=== PATIENT | female | born 1945 | race Caucasian/White ===

== ENCOUNTER → 2019-03-23 | Outpatient (CLI) | payer MEDICARE ==
[~2019-03-23] MED LIST: ASPI81TA94 PO; HYDR-653 PO; NO CURRENT MEDS; ONDA4TAB PO
--- NOTE | 2019-03-23 15:29 | RADIOLOGY IMAGING REPORT ---
FACILITY: [facility] [place] PATIENT NAME: XAVI BUCKNER : [id number] MR: [id number] V: [id number] EXAM DATE: [id number] ORDERING PHYSICIAN: AMBROSIO JIMENEZ TECHNOLOGIST: Navya Hutchinson PROCEDURE: BILATERAL DIGITAL SCREENING MAMMOGRAM WITH CAD ASSISTED INTERPRETATION & 3D TOMOSYNTHESIS. REASON FOR STUDY: Screening. FAMILY HISTORY OF BREAST CANCER: Mother in her 60's. BREAST PROCEDURES/TREATMENTS: None. COMPARISON: 09/20/16. VIEWS OBTAINED: Bilateral 2D & 3D full field CC & MLO projections. BREAST DENSITY: There are scattered areas of fibroglandular density throughout the breasts. MAMMOGRAM FINDINGS: The parenchymal pattern has remained stable allowing for difference in mammographic technique & patient positioning. An implanted battery projects over the upper portion of the Left breast posterior depth on the MLO view. IMPRESSION: BIRADS 1: Negative. DIAGNOSTIC CATEGORY 1--NEGATIVE. RECOMMENDATIONS: ROUTINE MAMMOGRAM AND CLINICAL EVALUATION. Dictated by: Dee Ray M.D. on 03/23/2019 at 14:22 Transcribed by: RAJESH on 03/23/2019 at 14:56 Approved by: Dee Ray M.D. on 03/23/2019 at 15:24 [facility]
== END ==
LOC: MAMO 00:37
PROVIDERS: ATTEND Nurse Practitioner Family
DX: Z12.31 Encounter for screening mammogram for malignant neoplasm of breast (principal)
CPT/HCPCS: 77063; 77067